=== PATIENT | male | born 1995 | race Caucasian/White ===

== ENCOUNTER 2022-03-25 10:16 | Inpatient (IN) | payer MEDICAID ==
[2022-03-25] VITALS (7 sets, daily range): BP systolic 107–125
[~2022-03-25] VITALS: Ht 180.3 cm; Wt 86.2 kg
--- NOTE | 2022-03-25 10:44 | NUR ---
Patient to ER bed 8 to gown for evaluation. Side rails up. Report given to Rivka CORTES.
--- NOTE | 2022-03-25 10:50 | NUR ---
Pt presents to the ER BIB self. CC- N/V x2 episodes R/T hyperglycemia. Pt BS was 390 at home at 0600, pt states drank an electroylte specialty drink contains sugar. Pt aaox4, afebrile. PMHx Type 1 Diabetic
--- NOTE | 2022-03-25 11:00 | NUR ---
Dr Bustos evaluating patien at bedside
[2022-03-25] MEDS ORDERED: NACL 0.9% 2,000 ML IV ONE (11:30)
[2022-03-25 11:38] LABS: BASOPHILS % (AUTO) 0.6 % (0.0-2.0); EOSINOPHILS % (AUTO) 0.2 % (0.0-4.0); HEMATOCRIT 43.6 % (36-54); HEMOGLOBIN 14.8 g/dL (14.0-18.0); LYMPHOCYTES % (AUTO) 13.2 % (20.5-51.5); MEAN CORPUSCULAR HEMOGLOBIN 28 pg (27-31); MEAN CORPUSCULAR HGB CONC 34 % (32-36); MEAN CORPUSCULAR VOLUME 82 fL (79.0-98.0); MONOCYTES # (AUTO) 0.3 K/uL (0.0-1.0); MONOCYTES % (AUTO) 4.1 % (1.7-9.3); NEUTROPHILS # (AUTO) 6.4 K/uL (1.8-7.7); NEUTROPHILS % (AUTO) 81.9 % (40.0-70.0); PLATELET COUNT (AUTO) 346 K/uL (130-430); RED BLOOD CELL COUNT(AUTO) 5.29 MIL/uL (4.2-6.2); RED CELL DISTRIBUTION WIDTH 13.1 % (9.0-15.0); WHITE BLOOD COUNT (AUTO) 7.8 K/uL (4.8-10.8)
[2022-03-25 12:02] LABS: ALANINE AMINOTRANSFERASE 14 U/L (12-78); ALBUMIN 4.1 g/dL (3.4-4.8); ANION GAP 23 (5-15); ASPARTATE AMINOTRANSFERASE 12 U/L (10-37); CALCIUM 9.2 mg/dL (8.4-11.0); CHLORIDE 96 mmol/L (98-107); LIPASE 26 U/L (73-393); POTASSIUM 4.8 mmol/L (3.5-5.1); SODIUM SERUM 133 mmol/L (136-145); TOTAL BILIRUBIN 0.7 mg/dL (0.0-1.0); UREA NITROGEN, BLOOD 15 mg/dL (8-21)
[2022-03-25 12:06] LABS: GFR AFRICAN AMERICAN 87 mL/min (>90); GLUCOSE 427 mg/dL (70-99)
[2022-03-25 12:07] LABS: ACETONE, SERUM LARGE (NEGATIVE)
[2022-03-25 12:39] LABS: BILIRUBIN,URINE NEGATIVE (NEGATIVE); CLARITY/URINE CLEAR (CLEAR); COLOR,URINE YELLOW (YELLOW); GLUCOSE,URINE 2+ (NEGATIVE); KETONES,URINE 3+ (NEGATIVE); LEUKOCYTE ESTERASE ,URINE NEGATIVE (NEGATIVE); NITRITE, URINE NEGATIVE (NEGATIVE); PROTEIN URINE NEGATIVE (NEGATIVE); UROBILINOGEN,URINE 0.2 (0.2-1.0)
[2022-03-25 12:40] LABS: BLOOD, URINE TRACE (NEGATIVE)
[2022-03-25] MEDS ORDERED: KCL 20 mEq in 100 mL (PREMIX) 100 ML IV ONE (12:45)
[2022-03-25] MEDS ORDERED: INSULIN REGULAR, HUMAN 100 UNITS in NS 99 ML IV PRN ×2 (12:45)
[2022-03-25 12:50] LABS: BACTERIA,URINE RARE /HPF (None Seen); RBC,URINE 0-3 /HPF (0-3); WBC,URINE 0-3 /HPF (0-3)
--- NOTE | 2022-03-25 14:20 | NUR ---
Insuline drip started at this time 3 units/ hour, pt BS 301 at this time, notified
--- NOTE | 2022-03-25 14:30 | NUR ---
Pt c/o severe burning/redness on RAC 20 gauge IV, IV discontinued at this time, well tolerated
[2022-03-25] MEDS ORDERED: DEXTROSE 50% JECT 50 ML DISP.SYRIN IVP PRN ×2 (15:00→17:15)
[2022-03-25] MEDS ORDERED: NACL 0.9% 1,000 ML IV ONE (15:00)
--- NOTE | 2022-03-25 15:10 | NUR ---
Admit bed requested Patient will be admitted to care of Dr Knott . Admitted to ICU unit. Diagnosis DKA Inpatient (Yes or No) YES Observation (Yes or No) NO Orientation concerns or request close to nursing station (Yes or No) NO Covid Status PENDING On vent or bipap Isolation requirements Needs a sitter N/A From Home (Yes or if No enter name of facility) yes Requires Dialysis (Yes or No) No Med Rec Completed (Yes of No) yes
--- NOTE | 2022-03-25 15:20 | NUR ---
BS 254 at this time, Insulin drip titrated to 2 units/ HR
--- NOTE | 2022-03-25 15:45 | NUR ---
Report given to Jose L JC
[2022-03-25] MEDS ORDERED: ONDANSETRON HCL 4 MG/2 ML VIAL IVP PRN (16:45)
[2022-03-25] MEDS ORDERED: D5W 1,000 ML IV PRN (17:15)
--- NOTE | 2022-03-25 17:26 | NUR ---
ADMISSION NOTE Received patient from ER via gurney. Patient admitted with diagnosis of . Patient is awake, alert, oriented X 4. Patient oriented to hospital room, call light, toileting, pain management and safety-teach back done. Patient informed that BABITA Bush will be the nurse and that their room number is [id number]. Personal belongings checked and Belongings List documented. Call light within reach.
[2022-03-25] MEDS: ACETAMINOPHEN 325 MG TABLET PO PRN ×2 (17:27→22:25)
--- NOTE | 2022-03-25 17:27 | NUR ---
TYLENOL GIVEN PRN FOR HEADACHE PO, PT TOLERATED WELL.
--- NOTE | 2022-03-25 17:33 | NUR ---
Called Dr. Huggins with a consult,spoke with Vj from the exchange
--- NOTE | 2022-03-25 18:15 | NUR ---
RN ROUNDS PATIENT REMAINS STABLE IN NO ACUTE DISTRESS AND OR DISCOMFORT, GIRLFRIEND REMAINS AT BEDSIDE, PATIENT FRIENDLY AND COOPERATIVE WITH CARES. DENIES ANY NEEDS AT THIS TIME. BED LOW AND LOCKED FOR SAFETY, PATIENT DEMONSTRATED USE OF CALL LIGHT SYSTEM.
[2022-03-25 19:03] LABS: CALCIUM 9.1 mg/dL (8.4-11.0); CREATININE 1.12 mg/dL (0.55-1.30); POTASSIUM 4.7 mmol/L (3.5-5.1)
--- NOTE | 2022-03-25 19:16 | NUR ---
CLOSING NOTE: REPORT GIVEN TO NOC RN, ALL CARES ENDORSED.
[2022-03-25 22:46] LABS: CALCIUM 8.5 mg/dL (8.4-11.0); CREATININE 1.26 mg/dL (0.55-1.30); POTASSIUM 4.6 mmol/L (3.5-5.1)
[2022-03-26] VITALS (24 sets, daily range): BP systolic 104–138
[2022-03-26 02:55] LABS: CALCIUM 8.1 mg/dL (8.4-11.0); CREATININE 1.15 mg/dL (0.55-1.30); POTASSIUM 4.1 mmol/L (3.5-5.1)
[2022-03-26 05:58] LABS: BASOPHILS % (AUTO) 0.6 % (0.0-2.0); EOSINOPHILS # (AUTO) 0.1 K/uL (0.0-0.4); HEMATOCRIT 40.6 % (36-54); HEMOGLOBIN 13.7 g/dL (14.0-18.0); LYMPHOCYTES # (AUTO) 2.3 K/uL (1.0-5.5); LYMPHOCYTES % (AUTO) 34.9 % (20.5-51.5); MEAN CORPUSCULAR HEMOGLOBIN 28 pg (27-31); MEAN CORPUSCULAR HGB CONC 34 % (32-36); MEAN CORPUSCULAR VOLUME 84 fL (79.0-98.0); MONOCYTES # (AUTO) 0.6 K/uL (0.0-1.0); MONOCYTES % (AUTO) 8.9 % (1.7-9.3); NEUTROPHILS # (AUTO) 3.5 K/uL (1.8-7.7); NEUTROPHILS % (AUTO) 53.6 % (40.0-70.0); PLATELET COUNT (AUTO) 311 K/uL (130-430); RED BLOOD CELL COUNT(AUTO) 4.85 MIL/uL (4.2-6.2); RED CELL DISTRIBUTION WIDTH 13.1 % (9.0-15.0); WHITE BLOOD COUNT (AUTO) 6.5 K/uL (4.8-10.8)
[2022-03-26 06:27] LABS: CALCIUM 7.5 mg/dL (8.4-11.0); CREATININE 1.18 mg/dL (0.55-1.30); PHOSPHORUS 2.6 mg/dL (2.7-4.5); POTASSIUM 4.1 mmol/L (3.5-5.1)
--- NOTE | 2022-03-26 07:25 | NUR ---
Received report from shift supervisor film processing RN, and assumed patient care.
--- NOTE | 2022-03-26 07:35 | NUR ---
Dr. Knott at bedside, informed patient about the possibility of going home once patient's anion gap closes, patient is aware of the current care plan, no additional orders noted at the moment. MD is aware of current blood glucose levels, no additional questions or concerns noted at the moment. Will reinforce if needed throughout the shift.
[2022-03-26] MEDS: D5W 1,000 ML IV SCH ×2 (08:14→17:29)
[2022-03-26] MEDS: INSULIN REGULAR, HUMAN 100 UNITS in NS 99 ML IV PRN ×20 (08:15→18:42)
--- NOTE | 2022-03-26 08:45 | NUR ---
Dr. Akhtar at bedside, no new orders noted at the moment. MD is aware of patient's current BMP and glucose levels. Will reinforce if needed throughout the shift.
[2022-03-26 10:12] LABS: CALCIUM 8.1 mg/dL (8.4-11.0); CREATININE 1.16 mg/dL (0.55-1.30); POTASSIUM 4.4 mmol/L (3.5-5.1)
--- NOTE | 2022-03-26 10:30 | NUR ---
Patient's family member at bedside, no new questions noted at the moment and will reinforce teaching throughout the shift.
--- NOTE | 2022-03-26 14:15 | NUR ---
Patient's family members are at bedside, provided nursing updates. No additional questions noted at the moment, will reinforce teaching throughout the shift.
[2022-03-26 15:04] LABS: CREATININE 1.18 mg/dL (0.55-1.30); POTASSIUM 4.1 mmol/L (3.5-5.1)
--- NOTE | 2022-03-26 18:00 | NUR ---
Patient's family is at bedside, provided nursing updates no additional questions noted at the end of the conversation. Will reinforce if needed throughout the shift.
--- NOTE | 2022-03-26 19:30 | NUR ---
Pm assessment Received report from AM nurse using SBAR approach.
--- NOTE | 2022-03-26 21:00 | NUR ---
Patient's partner was in the room. Answered all questions.
[2022-03-27] VITALS (24 sets, daily range): BP systolic 114–143
[2022-03-27] MEDS: ACETAMINOPHEN 325 MG TABLET PO PRN ×2 (00:36→11:55)
[2022-03-27] MEDS: D5W 1,000 ML IV SCH ×3 (05:05→23:42)
--- NOTE | 2022-03-27 07:15 | NUR ---
Received report from night filler RN, and assumed patient care.
--- NOTE | 2022-03-27 09:10 | NUR ---
Dr. Akhtar at bedside, MD ordered a set of BMP to check patient's most recent anion gap. No additional orders noted at the moment, will reinforce if needed throughout the shift.
[2022-03-27] MEDS: INSULIN REGULAR, HUMAN 100 UNITS in NS 99 ML IV PRN ×12 (10:14→14:51)
[2022-03-27 10:27] LABS: CALCIUM 7.8 mg/dL (8.4-11.0); CREATININE 1.06 mg/dL (0.55-1.30); POTASSIUM 3.6 mmol/L (3.5-5.1)
--- NOTE | 2022-03-27 12:00 | NUR ---
Patient's family members at bedside, no questions noted at the moment will reinforce if needed throughout the shift.
[2022-03-27 14:45] LABS: CREATININE 1.17 mg/dL (0.55-1.30); POTASSIUM 3.8 mmol/L (3.5-5.1)
[2022-03-27] MEDS ORDERED: INSULIN GLARGINE 100 UNITS/ML 10 ML VIAL SUBCUT SCH (15:15)
[2022-03-27] MEDS ORDERED: DEXTROSE 50% JECT 50 ML DISP.SYRIN IVP PRN (15:15)
[2022-03-27] MEDS ORDERED: D5W 1,000 ML IV PRN (15:15)
[2022-03-27] MEDS ORDERED: GLUCOSE (DEXTROSE) ORAL GEL -Adults PO PRN (15:15)
[2022-03-27] MEDS ORDERED: INSULIN GLARGINE 100 UNITS/ML 10 ML VIAL SUBCUT ONE (15:30)
--- NOTE | 2022-03-27 15:30 | NUR ---
Educated the patient about the MD's current order of switching insulin gtt to insulin subq and will be checking before meals. Patient was eager to go home today per MD's statement yesterday that patient might have the possibility of going home, but currently have no orders to go home as of right now. Patient understands the next plan of care, patient does not want to go home against medical advice but will stay until when the doctor is ready to discharge patient home. Attempted to call Dr. Mojica, but no answer of as the moment to clarify if patient is ready to go home. Informed patient about the attempt of call, but will inform patient if MD order about discharge. Will reinforce teaching throughout the shift, and will continue to monitor throughout the shift.
--- NOTE | 2022-03-27 16:30 | NUR ---
Attempted to call Dr. Mojica, no answer and left voicemail regarding patient's request of medical updates and the possibility of when the patient going home. Informed the patient about the attempt of call and no answer, patient understands the teaching, and will reinforce if needed throughout the shift.
[2022-03-27] MEDS: metFORMIN HCL 500 MG TABLET PO SCH (17:36)
[2022-03-27] MEDS: INSULIN LISPRO SLIDING SCALE 100 UNITS/ML VIAL (humaLOG) SUBCUT PRN ×2 (17:38→20:26)
--- NOTE | 2022-03-27 19:15 | NUR ---
OPENING NOTES: RECEIVED BEDSIDE REPORT FROM ABDIAS. PATIENT IS A&O X4, IV DRIPS AND FLUIDS ALL DC, ON LOW CARB DIET. PT IS IN BED RELAXING WATCHING A MOVIE WITH HIS GIRLFRIEND. OT IS ABLE WALK AND GO TO THE BATHROOM BY HIMSELF. BED IS AT THE LOWEST LEVEL, OXYGEN AND SUCTION WORKING, APPROPRIATE SIDE RAILS UP, AND CALL LIGHT WITHIN REACH.
[2022-03-28] VITALS (16 sets, daily range): BP systolic 113–145
[2022-03-28 06:38] LABS: BASOPHILS % (AUTO) 0.5 % (0.0-2.0); EOSINOPHILS # (AUTO) 0.1 K/uL (0.0-0.4); HEMATOCRIT 40.6 % (36-54); HEMOGLOBIN 13.9 g/dL (14.0-18.0); LYMPHOCYTES # (AUTO) 2.1 K/uL (1.0-5.5); LYMPHOCYTES % (AUTO) 42.7 % (20.5-51.5); MEAN CORPUSCULAR HEMOGLOBIN 28 pg (27-31); MEAN CORPUSCULAR HGB CONC 34 % (32-36); MEAN CORPUSCULAR VOLUME 82 fL (79.0-98.0); MONOCYTES # (AUTO) 0.6 K/uL (0.0-1.0); MONOCYTES % (AUTO) 11.6 % (1.7-9.3); NEUTROPHILS # (AUTO) 2.1 K/uL (1.8-7.7); NEUTROPHILS % (AUTO) 43.2 % (40.0-70.0); PLATELET COUNT (AUTO) 287 K/uL (130-430); RED BLOOD CELL COUNT(AUTO) 4.99 MIL/uL (4.2-6.2); RED CELL DISTRIBUTION WIDTH 13.2 % (9.0-15.0); WHITE BLOOD COUNT (AUTO) 4.8 K/uL (4.8-10.8)
[2022-03-28] MEDS: INSULIN LISPRO SLIDING SCALE 100 UNITS/ML VIAL (humaLOG) SUBCUT PRN ×2 (06:49→12:57)
[2022-03-28 07:33] LABS: CALCIUM 7.9 mg/dL (8.4-11.0); CREATININE 0.85 mg/dL (0.55-1.30); POTASSIUM 3.2 mmol/L (3.5-5.1)
--- NOTE | 2022-03-28 08:00 | NUR ---
Took over care, patient is still asleep. Sinus Rhythm on the monitor, not in any form of distress.
[2022-03-28] MEDS ORDERED: INSULIN GLARGINE 100 UNITS/ML 10 ML VIAL SUBCUT SCH (09:00)
--- NOTE | 2022-03-28 09:00 | NUR ---
Dr. Mojica here to see patient. will plan on discharging patient today.
[2022-03-28] MEDS: metFORMIN HCL 500 MG TABLET PO SCH (10:26)
--- NOTE | 2022-03-28 12:00 | NUR ---
BS - 284 mg/dl , due insulin coverage given SQ
--- NOTE | 2022-03-28 12:15 | NUR ---
Per Dr. Mojica, patient can be discharge home. Telemetry status at this time.
[2022-03-28] MEDS ORDERED: INSU100V9 SQ (12:18)
[2022-03-28] MEDS ORDERED: METF-379 PO (12:18)
--- NOTE | 2022-03-28 13:41 | NUR ---
Nutrition Note Pt was due to be seen by RD for high risk initial Nutrition Assessment today. RD rounded to pt's bedside and conducted bedside nutrition interview. Pt was anxious to go home and stated that he was told he would be D/C home today. RD confirmed this w/ pt's primary RN. Pt had no nutrition-related concerns and was not interested in nutrition education prior to D/C when offered by this RD. Initial Nutrition Assessment documentation deferred at this time. RD to remain available as per nutrition care standards.
--- NOTE | 2022-03-28 14:00 | NUR ---
Discharge instructions given. Prescription will be sent to pharmacy by
--- NOTE | 2022-03-28 14:30 | NUR ---
Patient discharged home in stable condition care of family. Instructions given, patient amenable.
== END 2022-03-28 14:30 | disposition home or self-care (01) | DRG 420 ==
LOC: SED 10:16 → SIC 14:52
PROVIDERS: ADMIT Student in an Organized Health Care Education/Training Program; ATTEND Student in an Organized Health Care Education/Training Program
DX: E10.10 Type 1 diabetes mellitus with ketoacidosis without coma (principal); G93.41 Metabolic encephalopathy; E87.1 Hypo-osmolality and hyponatremia; E86.0 Dehydration; Z20.822 Contact with and (suspected) exposure to COVID-19; Z79.4 Long term (current) use of insulin
CPT/HCPCS: 36415; 36600; 80048; 80053; 81000; 82009; 82803-TC; 82962; 83690; 83735; 84100; 85025; 96365; 96366; 99285; J1815; J3480